=== PATIENT | female | born 1970 | race Caucasian/White ===

== ENCOUNTER 2023-02-16 09:49 | Emergency (ER) | payer OTHER, SELFPAY ==
[2023-02-16 10:05] VITALS: BP 136/87; PULSE 86; RESP 16; TEMP 36.7; O2SAT 98
--- NOTE | 2023-02-16 10:41 | ED.URI ---
HPI - URI/Sore Throat General Chief Complaint: Upper Respiratory Infection Stated Complaint: Requesting Paxlovid Rx. +COVID at home. Time Seen by Provider: 02/16/23 10:34 Source: patient and RN notes reviewed Mode of arrival: ambulatory Limitations: no limitations History of Present Illness HPI Narrative: Patient presents today requesting a prescription for Paxlovid. She tested positive for COVID-19 this morning at home. Symptoms include sore throat, rhinorrhea, chills, cough, intermittent shortness of breath and wheezing. History of asthma. She has only been using her albuterol inhaler as needed, in no other [id number] medications at this time. She has been vaccinated and boosted against COVID-19. Related Data Home Medications Medication Instructions Recorded Confirmed cetirizine 10 mg tablet 10 mg PO DAILY 02/16/23 02/16/23 conjugated estrogens 0.9 mg tablet 0.9 mg PO DAILY 02/16/23 02/16/23 (Premarin) fluocinolone acetonide oil 0.01 % 2 drp EACH EAR DAILY 02/16/23 02/16/23 ear drops fluticasone propionate 50 2 spray intranasal DAILY 02/16/23 02/16/23 mcg/actuation nasal spray,suspension latanoprost 0.005 % eye drops 1 drp EACH EYE HS 02/16/23 02/16/23 Allergies Allergy/AdvReac Type Severity Reaction Status Date / Time No Known Allergies Allergy Verified 02/16/23 10:02 Review of Systems Review of Systems: CONSTITUTIONAL: Denies body aches, fever, or sweats.+ chills EYES: Denies visual changes, redness, or discharge. ENT: Denies congestion, or otalgia.+ rhinorrhea, sore throat CARDIOVASCULAR: Denies chest pain, palpitations, or edema. RESPIRATORY: + cough, shortness of breath GASTROINTESTINAL: Denies abdominal pain, nausea, vomiting, or diarrhea. GENITOURINARY: Denies dysuria or hematuria. SKIN: Denies rash, itching, or wounds. MUSCULOSKELETAL: Denies back pain, joint pain, or myalgia. NEUROLOGIC: Denies headache, numbness, tingling, or weakness. PSYCH: Denies depression or anxiety. [facility] Past Medical History Medical History (Updated 02/16/23 @ 10:46 by MANDY Avina, ) Asthma Comments At time of signature, I have reviewed and agree with nursing past medical, surgical, social and family history unless otherwise noted. Please see nursing chart for further information. There is no relevant family history pertinent to the presenting complaint Exam Narrative: GENERAL: Mildly ill-appearing, well-nourished, and in no acute distress. HEAD: Normocephalic, atraumatic. EYES: EOMI. No redness or drainage. Conjunctivae normal. ENT: Mucous membranes pink and moist. Nares congested with rhinorrhea. TMs normal bilaterally. Throat erythematous without edema or exudate. Uvula midline. NECK: Normal AROM. Supple. No lymphadenopathy. CHEST: No respiratory distress. Clear to auscultation. HEART: Regular rate and rhythm. No murmur appreciated. Normal peripheral pulses. EXTREMITIES: Normal range of motion. No edema. SKIN: Warm, dry, no rash. Capillary refill normal. Normal skin turgor. NEURO: No focal deficits. Alert and oriented x3. Gait steady. PSYCH: Normal affect. No signs of depression or anxiety. Course Course Level of Care: Express Care Visit Vital Signs Vital signs: Vital Signs Temperature 98.0 F 02/16/23 10:05 Pulse Rate 86 02/16/23 10:05 Respiratory Rate 16 02/16/23 10:05 Blood Pressure 136/87 02/16/23 10:05 Pulse Oximetry 98 02/16/23 10:05 Oxygen Delivery Room Air 02/16/23 10:05 Temperature 98.0 F 02/16/23 10:05 Pulse Rate 86 02/16/23 10:05 Respiratory Rate 16 02/16/23 10:05 Blood Pressure 136/87 02/16/23 10:05 Pulse Oximetry 98 02/16/23 10:05 Oxygen Delivery Room Air 02/16/23 10:05 Reviewed. Pt has been instructed to follow up with her PCP regarding her elevated blood pressure today. MDM - URI/Sore Throat MDM Narrative Medical decision making narrative: Rapid strep negative. Patient tested positive for COVID
== END 2023-02-16 10:48 | disposition home or self-care (01) ==
PROVIDERS: Emergency Provider Nurse Practitioner
DX: U07.1 COVID-19 (principal); J45.909 Unspecified asthma, uncomplicated
CPT/HCPCS: 87880; 99213; G0463

== ENCOUNTER 2023-03-06 10:52 | Emergency (ER) | payer OTHER, SELFPAY ==
[2023-03-06 11:01] VITALS: BP 125/72; PULSE 76; RESP 16; TEMP 36.2; O2SAT 100
--- NOTE | 2023-03-06 11:41 | ED.URI ---
HPI - URI/Sore Throat General Chief Complaint: Upper Respiratory Infection Stated Complaint: Hard to breath at times Time Seen by Provider: 03/06/23 11:30 Source: patient, RN notes reviewed and old records reviewed Mode of arrival: ambulatory Limitations: no limitations History of Present Illness HPI Narrative: 52-year-old female who presents to [facility] with complaints of having COVID February 16 with symptoms resolved. Reports though since 2 days ago she gets fatigued and it wears her out to talk. She reports that she uses her inhaler and it helps for an interval but then it returns. She reports that it seems like her voice is changing. Patient reports that she is fatigued and wanting to nap frequently.Patient reports some cough, denies any acute dyspnea, no fevers, no difficulty with swallowing or breathing. Patient reports that she did have strep also with COVID. MD elicited complaint: cough and other (fatigue and talking wears her out) Pertinent past history: asthma and other (COVID and strep throat February 16) Onset (ago): day(s) (2) Able to tolerate fluids by mouth: Yes Exacerbating factors: other (talking) Treatments prior to arrival: other (inhaler) Related Data Home Medications Medication Instructions Recorded Confirmed cetirizine 10 mg tablet 10 mg PO DAILY 02/16/23 03/06/23 conjugated estrogens 0.9 mg tablet 0.9 mg PO DAILY 02/16/23 03/06/23 (Premarin) fluocinolone acetonide oil 0.01 % 2 drp EACH EAR DAILY 02/16/23 03/06/23 ear drops fluticasone propionate 50 2 spray intranasal DAILY 02/16/23 03/06/23 mcg/actuation nasal spray,suspension latanoprost 0.005 % eye drops 1 drp EACH EYE HS 02/16/23 03/06/23 Allergies Allergy/AdvReac Type Severity Reaction Status Date / Time No Known Allergies Allergy Verified 03/06/23 11:11 Review of Systems Review of Systems: CONSTITUTIONAL:Reports malaise, no chills, sweats, or fever. EYES: Denies visual changes, redness, or discharge. ENT: Reports rhinorrhea, congestion, no sinus pain,no otalgia and no sore throat. CARDIOVASCULAR: Denies chest pain, palpitations, or edema. RESPIRATORY: Reports cough.? Denies dyspnea, reports talking wears her out GASTROINTESTINAL: Denies abdominal pain, nausea, vomiting, diarrhea SKIN: Denies rash or itching. MUSCULOSKELETAL: Denies myalgia. NEUROLOGIC: Denies headache. All systems reviewed & are unremarkable except as noted in HPI and below PMFSH Past Medical History Medical History (Updated 03/08/23 @ 07:15 by Joann Burris NP) Asthma GERD (gastroesophageal reflux disease) Surgical History Surgical History (Updated 03/08/23 @ 07:09 by Joann Burris NP) H/O: hysterectomy History of cholecystectomy Social History Social History (Updated 03/08/23 @ 07:10 by Joann Burris NP) Smoking status: Never smoker Living arrangements: with family Gender identity (if verbalized by the patient): Female Comments At time of signature, agree with nursing past medical, surgical, social and family history. There is no relevant family history pertinent to the presenting complaint Exam Narrative: GENERAL: Well-appearing, well-nourished, and in no acute distress. HEAD: Normocephalic EYES: PERRLA, conjunctivae clear ENT: Nares clear, turbinates edematous and erythematous, clear discharge. Mucous membranes moist. TM pearly caceres with dull light reflex bilaterally; no tragal tenderness. Oropharynx erythematous without lesions. Tonsils not enlarged and without exudate, no drooling, positive for hoarseness, no trismus, uvula midline.post nasal drainage NECK: Supple. No lymphadenopathy CHEST: Clear to auscultation, breath sounds equal. No wheezing, rhonchi, rales, or stridor. No respiratory distress, speaks in full sentences.dry cough, SAO2 100% on room air HEART: Regular rate and rhythm. No murmur heard. SKIN: Warm, dry, no rash. NEURO: Alert and oriented x3. PSYCH: Normal mood and
== END 2023-03-06 12:00 | disposition home or self-care (01) ==
PROVIDERS: Emergency Provider Registered Nurse
DX: J45.909 Unspecified asthma, uncomplicated (principal); K21.9 Gastro-esophageal reflux disease without esophagitis; Z86.16 Personal history of COVID-19
CPT/HCPCS: 99213; G0463

== ENCOUNTER 2023-04-27 07:10 | Outpatient (CLI) | payer OTHER, SELFPAY ==
--- NOTE | ~2023-04-27 | MR_ITS ---
MRI of the lumbar spine Clinical History: Back pain Technique: Axial T2-weighted images, and sagittal T1-weighted, T2-weighted, and T2 fat-sat images wer e acquired. Findings: There is no fracture or subluxation of the lumbar spine. Vertebral bodies maintain normal h eight and alignment. No bone marrow signal abnormality seen. At L1-L2 and L2-L3, L3-L4, there is no disc bulge or herniation. There is mild to moderate facet arth ropathy at these levels. No spinal canal stenosis or neural foraminal narrowing at these levels. At L4-L5, there is disc bulge, especially the left paracentral to left foraminal region, with mild fa cet arthropathy. Bilateral neural foramina are preserved. No central canal stenosis. At L5-S1, there is no disc bulge or herniation. There is mild to moderate facet arthropathy. No spina l canal stenosis or neural foraminal narrowing. Paravertebral soft tissues are unremarkable. Impression: Mild degenerative spondylosis, as above, worst at L4-L5. Reviewed, dictated and finalized at location . Impression: Mild degenerative spondylosis, as above, worst at L4-L5.
== END 2023-04-27 07:11 | disposition home or self-care (01) ==
DX: R20.2 Paresthesia of skin (principal); M47.896 Other spondylosis, lumbar region
CPT/HCPCS: 72148